=== PATIENT | female | born 1945 | race Two or more races ===

== ENCOUNTER 2022-12-17 14:25 | Inpatient (IN) | payer OTHER ==
[~2022-12-17] VITALS: Ht 165.1 cm; Wt 72.6 kg
[2022-12-21] MEDS ORDERED: ELIQUIS2.5 MG PO (07:47)
== END 2022-12-21 17:37 | disposition home or self-care (01) | DRG 482 ==
LOC: ER 14:25 → MEDI 19:06 → SURH 19:06 → SURG 19:06 → SURH 19:57 → SURG 12-18 17:17
PROVIDERS: Orthopaedic Surgery; ADMIT Internal Medicine; ATTEND Internal Medicine
PROC: BW28ZZZ Computerized Tomography (CT Scan) of Head (ICD-10-PCS; 2022-12-17)
PROC: 0QS635Z Reposition Right Upper Femur with External Fixation Device, Percutaneous Approach (ICD-10-PCS; principal; 2022-12-18 13:15)
DX: S72.141A Displaced intertrochanteric fracture of right femur, initial encounter for closed fracture (principal); M81.0 Age-related osteoporosis without current pathological fracture; Z20.822 Contact with and (suspected) exposure to COVID-19; S09.90XA Unspecified injury of head, initial encounter; W18.30XA Fall on same level, unspecified, initial encounter; Y93.9 Activity, unspecified; Y92.017 Garden or yard in single-family (private) house as the place of occurrence of the external cause; I73.9 Peripheral vascular disease, unspecified